=== PATIENT | female | born 1960 | race Caucasian/White ===

== ENCOUNTER 2018-10-04 11:50 | Emergency (ER) | payer SELFPAY ==
[~2018-10-04] VITALS: Ht 157.5 cm; Wt 85.8 kg
[~2018-10-04 11:50] MED LIST: HYDR-2155 PO; ONDA4TAB12 PO
[2018-10-04] MEDS ORDERED: IV NORMAL SALINE 1,000ML 1,000 ML IV ONE (12:30)
[2018-10-04] MEDS ORDERED: ONDANSETRON PF 4 MG/2 ML VIAL. IV ONE ×2 (12:45→14:15)
[2018-10-04 13:27] LABS: ALBUMIN 2.9 g/dL (3.4-5.0); ALBUMIN/GLOBULIN RATIO 0.5 (1.0-1.7); CALCIUM 8.8 mg/dL (8.5-10.1); CREATININE 0.7 mg/dL (0.6-1.0); GFR 85.6; TOTAL BILIRUBIN 0.6 mg/dL (0.2-1.0); TOTAL PROTEIN 8.3 g/dL (6.4-8.2)
[2018-10-04 13:28] LABS: POTASSIUM 4.1 mmol/L (3.5-5.1)
[2018-10-04 13:29] LABS: EOS % 2 % (0-3); HEMATOCRIT 51.4 % (36.0-47.0); HEMOGLOBIN 16.8 g/dL (12.0-15.5); LYMPH % 31 % (24-48); MEAN CORPUSCULAR HEMOGLOBIN 32 pg (25-35); MEAN CORPUSCULAR HGB CONC 33 g/dL (31-37); MEAN CORPUSCULAR VOLUME 98 fL (79-100); MONO % 8 % (0-9); NEUT % 59 % (31-73); PLATELET COUNT 310 x10^3/uL (140-400); RED BLOOD COUNT 5.27 x10^6/uL (3.50-5.40); RED CELL DISTRIBUTION WIDTH 14.2 % (11.5-14.5); WHITE BLOOD COUNT 14.1 x10^3/uL (4.0-11.0)
[2018-10-04 13:30] LABS: BASO # 0.1 x10^3/uL (0.0-0.2); BASO % 1 % (0-3); EOS # 0.3 x10^3/uL (0.0-0.7); LYMPH # 4.3 x10^3/uL (1.0-4.8); MONO # 1.1 x10^3/uL (0.0-1.1); NEUT # 8.3 x10^3uL (1.8-7.7)
[2018-10-04] MEDS ORDERED: ONDA4TAB12 PO (14:07)
[2018-10-04] MEDS ORDERED: ACETAMINOPHEN 325 MG TABLET PO ONE (14:15)
[2018-10-04 14:35] VITALS: BP 125/75
--- NOTE | 2018-10-04 14:42 | PHYS DOC ---
Past History Past Medical History: COPD, Diabetes Past Surgical History: Cholecystectomy, Spleenectomy, Other Alcohol Use: None Drug Use: None Social History Narrative: hx of meth use, none recently Adult General Chief Complaint Chief Complaint: NAUSEA/VOMITING/DIARRHEA HPI HPI Patient is a 58-year-old female is presenting with nausea vomiting and diarrhea. She ate some pork chops and some beans and some vegetables last night the person who also ate the same food also has the same symptoms she tells me. She has had several episodes of vomiting 2 large episodes of loose brown stool nonbloody she's having some intermittent abdominal cramping in nature comes and goes worse before vomiting mostly in the epigastric area. No fever for sure though she felt hot last night she's had her gallbladder removed in the past Review of Systems Review of Systems Cardiovascular: No additional information not addressed in HPI [] GI: All other systems were reviewed and found to be within normal limits, except as documented in this note. Current Medications Current Medications Current Medications Medications (Trade) Dose Ordered Sig/Olivia Start Time Stop Time Status Last Admin Dose Admin Acetaminophen (Tylenol) 650 mg 1X ONCE 10/04/18 14:15 10/04/18 14:18 DC 10/04/18 14:11 650 MG Fentanyl Citrate (Fentanyl 2ml Vial) 50 mcg 1X ONCE 10/04/18 12:45 10/04/18 12:46 DC 10/04/18 12:51 50 MCG Ondansetron HCl (Zofran) 4 mg 1X ONCE 10/04/18 14:15 10/04/18 14:18 DC 10/04/18 14:11 4 MG Sodium Chloride 1,000 ml @ 1,000 mls/hr 1X ONCE 10/04/18 12:30 10/04/18 13:29 DC 10/04/18 12:48 1,000 MLS/HR Allergies Allergies Allergies Coded Allergies Type Severity Reaction Last Updated Verified aspirin Allergy Unknown Nausea 10/04/18 Yes Physical Exam Physical Exam Constitutional: Well developed, well nourished, no acute distress, non-toxic appearance. [] HENT: Normocephalic, atraumatic, bilateral external ears normal, oropharynx moist, no oral exudates, nose normal. [] Eyes: PERRLA, EOMI, conjunctiva normal, no discharge. [] Neck: Normal range of motion, no tenderness, supple, no stridor. [] Cardiovascular:Heart rate regular rhythm, no murmur [] Lungs & Thorax: Bilateral breath sounds clear to auscultation [] Abdomen: Bowel sounds normal, soft, essentially nontender bowel sounds present, no masses, no pulsatile masses. [] Skin: Warm, dry, no erythema, no rash. [] Back: No tenderness, no CVA tenderness. [] Extremities: No tenderness, no cyanosis, no clubbing, ROM intact, no edema. [] Neurologic: Alert and oriented X 3, normal motor function, normal sensory function, no focal deficits noted. [] Psychologic: Affect normal, judgement normal, mood normal. [] Current Patient Data Vital Signs Vital Signs Date Time Temp Pulse Resp B/P (MAP) Pulse Ox O2 Delivery O2 Flow Rate FiO2 10/04/18 14:14 105 18 127/78 (94) 95 Room Air 10/04/18 11:50 97.5 Lab Results Laboratory Tests Test 10/04/18 12:50 White Blood Count 14.1 x10^3/uL (4.0-11.0) H Red Blood Count 5.27 x10^6/uL (3.50-5.40) Hemoglobin 16.8 g/dL (12.0-15.5) H Hematocrit 51.4 % (36.0-47.0) H Mean Corpuscular Volume 98 fL (79-100) Mean Corpuscular Hemoglobin 32 pg (25-35) Mean Corpuscular Hemoglobin Concent 33 g/dL (31-37) Red Cell Distribution Width 14.2 % (11.5-14.5) Platelet Count 310 x10^3/uL (140-400) Neutrophils (%) (Auto) 59 % (31-73) Lymphocytes (%) (Auto) 31 % (24-48) Monocytes (%) (Auto) 8 % (0-9) Eosinophils (%) (Auto) 2 % (0-3) Basophils (%) (Auto) 1 % (0-3) Neutrophils # (Auto) 8.3 x10^3uL (1.8-7.7) H Lymphocytes # (Auto) 4.3 x10^3/uL (1.0-4.8) Monocytes # (Auto) 1.1 x10^3/uL (0.0-1.1) Eosinophils # (Auto) 0.3 x10^3/uL (0.0-0.7) Basophils # (Auto) 0.1 x10^3/uL (0.0-0.2) Sodium Level 133 mmol/L (136-145) L Potassium Level 4.1 mmol/L (3.5-5.1) Chloride Level 98 mmol/L (98-107) Carbon Dioxide Level 23 mmol/L (21-32) Anion Gap 12 (6-14) Blood Urea Nitrogen 15 mg/dL (7-20) Creatinine 0.7 mg/dL (0.6-1.0) Estimated GFR (Cockcroft-Gault) 85.6 BUN/Creatinine Ratio 21 (6-20) H Glucose Level 341 mg/dL (70-99) H Calcium Level 8.8 mg/dL (8.5-10.1) Total Bilirubin 0.6 mg/dL (0.2-1.0) Aspartate Amino Transferase (AST) 105 U/L (15-37) H Alanine Aminotransferase (ALT) 155 U/L (14-59) H Alkaline Phosphatase 168 U/L (46-116) H Total Protein 8.3 g/dL (6.4-8.2) H Albumin 2.9 g/dL (3.4-5.0) L Albumin/Globulin Ratio 0.5 (1.0-1.7) L Lipase 133 U/L (73-393) EKG EKG [] Radiology/Procedures Radiology/Procedures [] Course & Med Decision Making Course & Med Decision Making Pertinent Labs and Imaging studies reviewed. (See chart for details) []58-year-old female known history of hepatitis C also cholecystectomy presenting with some abdominal discomfort in the setting of profuse vomiting and also significant diarrhea after presumed food poisoning. She feels strongly that she has food poisoning because a person who also ate the same food has the same symptoms. Noted the mild leukocytosis this could be related to vomiting. I talked with her about imaging to evaluate for possible small bowel obstruction retained stone etc. She says she is really certain this was food poisoning she is feeling better she really does not want to do the CAT scan at this time. She tolerated the by mouth challenge in the emergency room without significant difficulty. I asked her to come back within 24 hours or sooner should there be any increase in pain in inability to eat or drink fever or any other symptoms or concerns. Dragon Disclaimer Dragon Disclaimer This electronic medical record was generated, in whole or in part, using a voice recognition dictation system. Departure Departure: Impression: Primary Impression: Abdominal pain Additional Impression: Nausea vomiting and diarrhea Disposition: 01 HOME, SELF-CARE Condition: STABLE Patient Instructions: Abdominal Pain (Nonspecific) Additional Instructions: come back in 24 hours if the pain is not improved Scripts Ondansetron (ONDANSETRON ODT) 4 Mg Tab.rapdis 1 TAB PO PRN Q6-8HRS for nausea, #16 TAB Prov: RACQUEL FAITH MD 10/04/18 Problem Qualifiers RACQUEL FAITH MD Oct 04, 2018 14:42
== END 2018-10-04 14:41 | disposition home or self-care (01) ==
LOC: ER 11:50
DX: R11.2 Nausea with vomiting, unspecified (principal); R19.7 Diarrhea, unspecified; R10.13 Epigastric pain; J44.9 Chronic obstructive pulmonary disease, unspecified; E11.9 Type 2 diabetes mellitus without complications; Z90.49 Acquired absence of other specified parts of digestive tract; Z90.81 Acquired absence of spleen; Z88.6 Allergy status to analgesic agent
CPT/HCPCS: 36415; 80053; 83690; 85025; 96361; 96374; 96375; 96376; 99284; J2405; J3010; J7030

== ENCOUNTER 2021-02-04 14:59 | Emergency (ER) | payer OTHER ==
[~2021-02-04] VITALS: Ht 157.5 cm; Wt 80.5 kg
[2021-02-04 15:15] VITALS: BP 145/88
[2021-02-04] MEDS ORDERED: CYCL10TA19 PO (15:29)
[2021-02-04] MEDS ORDERED: OXYC5CAP PO (15:29)
[2021-02-04] MEDS ORDERED: IOHEXOL 350 MG/ML 100 ML VIAL. IV ONE (15:30)
--- NOTE | 2021-02-04 15:30 | PHYS DOC ---
Past History Past Medical History: COPD, Diabetes Past Surgical History: Cholecystectomy, Spleenectomy, Other Alcohol Use: None Drug Use: None Adult General Chief Complaint Chief Complaint: BACK PAIN - NO INJURY HPI HPI Patient is a 61-year-old female with history of hep C, COPD, diabetes type 2, presenting to the ED today complaining of 10 out of 10 mid back pain nonradiating in nature, symptoms began 3 days ago. Patient states the pain is worse on activities. Denies any chest pain, denies any shortness of breath. Denies any urgency frequency dysuria. She states she just had an MRI done and she has a spot on one of her kidneys. Review of Systems Review of Systems Constitutional: Denies fever or chills [] Eyes: Denies change in visual acuity, redness, or eye pain [] HENT: Denies nasal congestion or sore throat [] Respiratory: Denies cough or shortness of breath [] Cardiovascular: No additional information not addressed in HPI [] GI: Denies abdominal pain, nausea, vomiting, bloody stools or diarrhea [] : Denies dysuria or hematuria [] Musculoskeletal: Reports mid back pain Integument: Denies rash or skin lesions [] Neurologic: Denies headache, focal weakness or sensory changes [] All other systems were reviewed and found to be within normal limits, except as documented in this note. Allergies Allergies Allergies Coded Allergies Type Severity Reaction Last Updated Verified aspirin Allergy Unknown Nausea 10/04/18 Yes hydrocodone Allergy Unknown 02/04/21 Yes Physical Exam Physical Exam Constitutional: Well developed, well nourished, no acute distress, non-toxic appearance. [] HENT: Normocephalic, atraumatic, bilateral external ears normal, oropharynx moist, no oral exudates, nose normal. [] Eyes: PERRLA, EOMI, conjunctiva normal, no discharge. [] Neck: Normal range of motion, no tenderness, supple, no stridor. [] Cardiovascular:Heart rate regular rhythm, no murmur [] Lungs & Thorax: Bilateral breath sounds clear to auscultation [] Abdomen: Bowel sounds normal, soft, no tenderness, no masses, no pulsatile masses. [] Skin: Warm, dry, no erythema, no rash. [] Back: Diffuse paraspinal muscle tenderness to the thoracic spine, no midline tenderness, no CVA tenderness. [] Extremities: No tenderness, no cyanosis, no clubbing, ROM intact, no edema. [] Neurologic: Alert and oriented X 3, normal motor function, normal sensory function, no focal deficits noted. [] Psychologic: Affect normal, judgement normal, mood normal. [] Current Patient Data Vital Signs Vital Signs Date Time Temp Pulse Resp B/P (MAP) Pulse Ox O2 Delivery O2 Flow Rate FiO2 02/04/21 15:15 98.3 111 16 145/88 (107) 95 Room Air EKG EKG [] Radiology/Procedures Radiology/Procedures [] Heart Score C/O Chest Pain: N/A Risk Factors: Risk Factors: DM, Current or recent (<one month) smoker, HTN, HLP, family history of CAD, obesity. Risk Scores: Risk Factors: DM, Current or recent (<one month) smoker, HTN, HLP, family history of CAD, obesity. Course & Med Decision Making Course & Med Decision Making Pertinent Labs and Imaging studies reviewed. (See chart for details) This is a 61-year-old female patient presented to the ED today complaining of mid back pain, symptoms have been going on for 3 days. I spoke to patient about the concern for this pain and requested a work-up to rule out a dissection. She has completely refused any work out. She states she just had an MRI done a couple days ago and was noted to have a spot in her kidney. She states this pain is musculoskeletal. Recommended following up with the PCP. Lit Disclaimer Lit Disclaimer This electronic medical record was generated, in whole or in part, using a voice recognition dictation system. Departure Departure: Impression: Primary Impression: Back pain Disposition: HOME / SELF CARE / HOMELESS Condition: STABLE Referrals: MIRTA PURVIS (PCP) follow up in one week Patient Instructions: Back Pain, Adult Additional Instructions: You were evaluated in the emergency room for back pain. Please contact your primary care doctor and set up a follow-up appointment as soon as possible. Take the prescribed medications as needed for your pain Scripts Oxycodone Hcl (OXYCODONE HCL) 5 Mg Capsule 1 MG PO Q6HRS, #10 CAP Prov: VICKY BETANCUR APRN 02/04/21 Cyclobenzaprine Hcl (CYCLOBENZAPRINE HCL) 10 Mg Tablet 1 TAB PO TID, #30 TAB Prov: VICKY BETANCUR APRN 02/04/21 Problem Qualifiers Primary Impression: Back pain Back pain location: thoracic back pain Chronicity: acute Back pain laterality: bilateral Qualified Codes: M54.6 - Pain in thoracic spine VICKY BETANCUR APRN Feb 04, 2021 15:30
== END 2021-02-04 15:50 | disposition home or self-care (01) ==
LOC: ER 14:59
DX: M54.6 Pain in thoracic spine (principal); J44.9 Chronic obstructive pulmonary disease, unspecified; E11.9 Type 2 diabetes mellitus without complications; Z90.49 Acquired absence of other specified parts of digestive tract
CPT/HCPCS: 93005; 99283-25